=== PATIENT | male | born 1985 | race Caucasian/White ===

== ENCOUNTER 2016-07-29 00:45 | Emergency (ER) | payer MEDICAID, OTHER ==
[~2016-07-29] VITALS: Ht 172.7 cm; Wt 75.0 kg
[~2016-07-29 00:45] MED LIST: IBUP400T20 PO; IBUP600 PO; PENI500T PO; TRAM50 PO
[2016-07-29 00:54] VITALS: BP 138/82; PULSE 78; RESP 18; TEMP 98.5; O2SAT 97
[2016-07-29 01:18] LABS: AUTOMATED NEUTROPHIL # 4.5 TH/MM3 (1.8-7.7); BASOPHIL # 0.1 TH/MM3 (0-0.2); BASOPHIL % 0.8 % (0.0-2.0); EOSINOPHIL # 0.1 TH/MM3 (0-0.4); EOSINOPHIL % 1.2 % (0.0-4.0); HEMATOCRIT 40.1 % (39.0-51.0); HEMO FLAGS DIFF FINAL; LYMPH % 39.6 % (9.0-44.0); LYMPHOCYTE # 3.3 TH/MM3 (1.0-4.8); MEAN CELL VOLUME 85.8 FL (80.0-100.0); MEAN CORPUSCULAR HEMOGLOBIN 30.2 PG (27.0-34.0); MEAN CORPUSCULAR HGB CONC 35.2 % (32.0-36.0); MONO % 4.2 % (0.0-8.0); NEUT % 54.2 % (16.0-70.0); PLATELET COUNT 209 TH/MM3 (150-450); RED BLOOD COUNT 4.67 MIL/MM3 (4.50-5.90); RED CELL DISTRIBUTION WIDTH 12.9 % (11.6-17.2); WHITE BLOOD COUNT 8.4 TH/MM3 (4.0-11.0)
[2016-07-29 01:25] LABS: AMPHETAMINE, URINE NEG (NEG); BARBITURATES, URINE NEG (NEG); COCAINE, URINE NEG (NEG)
[2016-07-29 01:39] LABS: ANION GAP 11 MEQ/L (5-15); AST (GOT) 35 U/L (15-37); BICARBONATE 23.1 MEQ/L (21.0-32.0); CHLORIDE 110 MEQ/L (98-107); GLOMERULAR FILTRATION RATE 88 ML/MIN (>89); POTASSIUM 3.4 MEQ/L (3.5-5.1); SODIUM (NA) 144 MEQ/L (136-145)
[2016-07-29 01:45] LABS: ALKALINE PHOSPHATASE 92 U/L (45-117); ALT (GPT) 35 U/L (12-78); BLOOD UREA NITROGEN 10 MG/DL (7-18); TOTAL BILIRUBIN ADULT 0.2 MG/DL (0.2-1.0)
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
[2016-07-29] MEDS ORDERED: POTASSIUM CHLORIDE 20 MEQ CONTROLLED RELEASE TAB PO ONE (03:30)
[2016-07-29 04:30] VITALS: BP 126/79; PULSE 75; RESP 14; O2SAT 97
[2016-07-29 07:48] VITALS: BP 130/77; PULSE 72; RESP 15; O2SAT 98
[2016-07-29 10:05] VITALS: BP 128/72
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
== END 2016-07-29 10:15 | disposition home or self-care (01) ==
LOC: NEPB 00:45
DX: F43.20 Adjustment disorder, unspecified (principal); F10.10 Alcohol abuse, uncomplicated; Z87.891 Personal history of nicotine dependence; R01.1 Cardiac murmur, unspecified
CPT/HCPCS: 80053; 80307; 80320; 85025; 99283

== ENCOUNTER 2016-12-18 01:10 | Emergency (ER) | payer MEDICAID, OTHER ==
[~2016-12-18] VITALS: Ht 185.4 cm; Wt 62.0 kg
[2016-12-18 01:17] VITALS: BP 117/75; PULSE 54; RESP 16; TEMP 97.8; O2SAT 100
[2016-12-18] MEDS ORDERED: IBUP800T23 PO (01:33)
[2016-12-18] MEDS ORDERED: AMOX875T PO (01:33)
--- NOTE | 2016-12-18 01:33 | PD ---
HPI Chief Complaint: Oral / Dental Pain or Problem Time Seen by Provider: 01:22 Travel History International Travel<30 days: No Contact w/Intl Traveler<30days: No Traveled to known affect area: No History of Present Illness HPI The patient is a 31-year-old male that has a long-standing history of dental problems and multiple broken down teeth who complained of left-sided dental pain for 24 hours. He came in because he knows he needs an antibiotic. He does not currently have a dental appointment. He denies any fever. PFSH Past Medical History Cardiovascular Problems: Yes (murmur) Cerebrovascular Accident: No Diabetes: No Diminished Hearing: No Immunizations Current: Yes Myocardial Infarction: No Seizures: Yes ( A CHILD) Social History Alcohol Use: Yes ([facility]) Tobacco Use: Yes (QUIT AGE 29) Substance Use: No Allergies-Medications (Allergen,Severity, Reaction): Coded Allergies: No Known Allergies (Verified , 07/29/16) Reported Meds & Prescriptions Reported Meds & Active Scripts Active No Active Prescriptions or Reported Medications Review of Systems Except as stated in HPI: all other systems reviewed are Neg Physical Exam Narrative GENERAL: Well-nourished, well-developed patient in slight apparent distress, his vital signs are normal. SKIN: Focused skin assessment warm/dry. HEAD: Normocephalic. I do not see any swelling on the left side of the face externally while I look at the patient. EYES: No scleral icterus. No injection or drainage. NECK: Supple, trachea midline. No JVD or lymphadenopathy. CARDIOVASCULAR: Regular rate and rhythm without murmurs, gallops, or rubs. RESPIRATORY: Breath sounds equal bilaterally. No accessory muscle use. GASTROINTESTINAL: Abdomen soft, non-tender, nondistended. MUSCULOSKELETAL: No cyanosis, or edema. BACK: Nontender without obvious deformity. No CVA tenderness. DENTAL: No loose or chipped teeth. No malocclusion. Multiple broken down teeth are present. No drainable abscesses are noted in the mouth. No tenderness is present below the jaw. Data Data Last Documented VS Vital Signs Date Time Temp Pulse Resp B/P Pulse Ox O2 Delivery O2 Flow Rate FiO2 12/18/16 01:17 97.8 54 16 117/75 100 MDM Medical Decision Making Medical Screen Exam Complete: Yes Emergency Medical Condition: Yes Medical Record Reviewed: Yes Differential Diagnosis Dental infection, drainable dental abscesses, Laurent's anginahighly unlikely Narrative Course The patient has a dental infection without any drainable abscesses. He will need to take amoxicillin 875 twice daily and Motrin 800 mg 3 times daily and follow-up with a dentist. Additional Instructions: As we discussed, follow-up with a dentist. We gave you multiple refills on the antibiotic and the Motrin is taken regularly, 1 tablet 3 times daily. Med/Other Pt SpecificInfo: Prescription(s) given Scripts Ibuprofen 800 Mg [id number] Mg PO TID #44 TAB Ref 0 Prov:Solo Schmidt MD 12/18/16 Amoxicillin 875 Mg [id number] Mg PO BID 10 Days Ref 0 Prov:Solo Schmidt MD 12/18/16 Solo Schmidt MD Dec 18, 2016 01:33
[2016-12-18] MEDS ORDERED: IBUPROFEN 800 MG TAB PO ONE (02:00)
[2016-12-18] MEDS ORDERED: AMOXICILLIN 875 MG TAB PO ONE (02:00)
== END 2016-12-18 02:04 | disposition home or self-care (01) ==
LOC: PHED 01:10
DX: K04.7 Periapical abscess without sinus (principal); K08.89 Other specified disorders of teeth and supporting structures; R01.1 Cardiac murmur, unspecified; Z79.899 Other long term (current) drug therapy; Z87.891 Personal history of nicotine dependence
CPT/HCPCS: 99283

== ENCOUNTER 2017-05-09 03:38 | Emergency (ER) | payer MEDICAID ==
[~2017-05-09] VITALS: Ht 185.4 cm; Wt 64.1 kg
[~2017-05-09 03:38] MED LIST changes: +AMOX875T PO; -IBUP400T20 PO; -IBUP600 PO; +IBUP800T23 PO; -PENI500T PO; -TRAM50 PO
[2017-05-09 03:47] VITALS: BP 130/61; PULSE 48; RESP 18; TEMP 98.3; O2SAT 100
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
[2017-05-09 05:14] VITALS: PULSE 57; O2SAT 100
[2017-05-09] MEDS ORDERED: IBUP800T23 PO (05:26)
--- NOTE | 2017-05-09 05:29 | RADRPT ---
EXAM DATE/TIME: 05/09/2017 04:52 [place] COMPARISON: No previous studies available for comparison. INDICATIONS : Right hand pain. MEDICAL HISTORY : Right hand fracture SURGICAL HISTORY : None. ENCOUNTER: Initial ACUITY: 1 day PAIN SCORE: 6/10 LOCATION: Right hand. FINDINGS: Three view examination of the right hand demonstrates fracture of the distal fifth metacarpal with di splacement. Soft tissue swelling. Bony mineralization is normal. CONCLUSION: Distal fifth metacarpal fracture. Drew Grubbs MD on May 09, 2017 at 5:26 Board Certified Radiologist. This report was verified electronically.
[2017-05-09] MEDS ORDERED: IBUPROFEN 800 MG TAB PO ONE (05:30)
== END 2017-05-09 05:35 | disposition home or self-care (01) ==
LOC: PHED 03:38
DX: S62.336A Displaced fracture of neck of fifth metacarpal bone, right hand, initial encounter for closed fracture (principal); W23.0XXA Caught, crushed, jammed, or pinched between moving objects, initial encounter
CPT/HCPCS: 29125; 73130

== ENCOUNTER 2017-12-07 01:42 | Emergency (ER) | payer SELFPAY ==
[~2017-12-07] VITALS: Ht 182.9 cm; Wt 65.4 kg
[~2017-12-07 01:42] MED LIST changes: -AMOX875T PO; +IBUP1TAB7 PO; -IBUP800T23 PO
[2017-12-07 01:46] VITALS: BP 126/72; PULSE 48; RESP 14; TEMP 95.9; O2SAT 99
[2017-12-07 02:04] VITALS: PULSE 50; TEMP 97.9
[2017-12-07] MEDS ORDERED: PENI500T PO (02:12)
[2017-12-07] MEDS ORDERED: IBUP-232 PO (02:12)
[2017-12-07] MEDS ORDERED: PERI0.126 SWISH-SPIT (02:12)
--- NOTE | 2017-12-07 02:13 | PD ---
HPI Chief Complaint: Oral / Dental Pain or Problem Time Seen by Provider: 02:02 Travel History International Travel<30 days: No Contact w/Intl Traveler<30days: No Traveled to known affect area: No History of Present Illness HPI The patient is a 32-year-old male who presents to the emergency department for left lower jaw swelling. The patient states he has mild swelling along the left lower jaw. He does have a history of poor dentition and states that he needs all of his teeth pulled out, however, does not currently have a dentist. He notes occasional sensitivity to heat and cold, but denies any current sensitivity to heat or cold. The area is slightly swollen and painful. He denies any associated fever, chills, or sweats. Symptoms are moderate. PFSH Past Medical History Cardiovascular Problems: Yes ([facility]) Cerebrovascular Accident: No Diabetes: No Diminished Hearing: No Musculoskeletal: Yes (RIGHT HAND FX: AGE 22) Immunizations Current: Yes Myocardial Infarction: No Seizures: Yes ( A CHILD) Social History Alcohol Use: Yes ([facility]) Tobacco Use: Yes (QUIT AGE 29) Substance Use: No Allergies-Medications (Allergen,Severity, Reaction): Coded Allergies: No Known Allergies (Verified Adverse Reaction, Unknown, 12/07/17) Reported Meds & Prescriptions Reported Meds & Active Scripts Active No Active Prescriptions or Reported Medications Review of Systems Except as stated in HPI: all other systems reviewed are Neg General / Constitutional: No: Fever HENT: Positive: Dental Difficulties, No: Neck Pain Skin: No Rash Physical Exam Narrative GENERAL: Awake, alert, pleasant 32-year-old male who appears his stated age is in no acute respiratory distress. SKIN: Focused skin assessment warm/dry. HEAD: Atraumatic. Normocephalic. EYES: Pupils equal and round. No scleral icterus. No injection or drainage. ENT: No nasal bleeding or discharge. Poor dentition with multiple cavities teeth along the inferior aspect bilateral. I cannot palpate an abscess. No obvious edema or swelling when the jaw is evaluated. NECK: Trachea midline. No JVD. No cervical lymphadenopathy noted. MUSCULOSKELETAL: No obvious deformities. No clubbing. No cyanosis. No edema. NEUROLOGICAL: Awake and alert. No obvious cranial nerve deficits. Motor grossly within normal limits. Normal speech. PSYCHIATRIC: Appropriate mood and affect; insight and judgment normal. Data Data Last Documented VS Vital Signs Date Time Temp Pulse Resp B/P (MAP) Pulse Ox O2 Delivery O2 Flow Rate FiO2 12/07/17 02:04 97.9 50 12/07/17 01:46 14 126/72 (90) 99 MDM Medical Decision Making Medical Screen Exam Complete: Yes Emergency Medical Condition: Yes Medical Record Reviewed: Yes Differential Diagnosis Differential diagnosis includes dental abscess, ANUG, gingivitis, odontalgia, osteomyelitis. Narrative Course The patient's physical examination reveals significant capitis teeth on the inferior aspect but no palpable abscess. The patient will be placed on Pen-Vee K for 10 days and then Peridex afterwards. Naprosyn as needed for pain. He is advised to follow-up with a dentist or oral surgeon for definitive care. Diagnosis Primary Impression: Odontalgia Patient Instructions: General Instructions Additional Instructions: Medications as directed. Follow-up with a dentist or oral surgeon for definitive care. Return if symptoms worsen or progress. Med/Other Pt SpecificInfo: Prescription(s) given Scripts Chlorhexidine Gluconate (Mouth) Liq (Peridex Liq) 0.12% Soln 15 ML SWISH-SPIT BID, #473 ML 0 Refills Prov: Juan Garcia MD 12/07/17 Penicillin V Potassium (Penicillin V Potassium) 500 Mg Tab 500 MG PO Q6H for Infection for 10 Days, #40 TAB 0 Refills Prov: Juan Garcia MD 12/07/17 Ibuprofen (Ibuprofen) 600 Mg Tab 600 MG PO Q6H Y for Pain/Inflammation, #20 TAB 0 Refills Prov: Juan Garcia MD 12/07/17 Disposition: 01 DISCHARGE HOME Condition: Stable Juan Garcia MD December 07, 2017 02:13
== END 2017-12-07 02:31 | disposition home or self-care (01) ==
LOC: PHED 01:42
DX: K08.89 Other specified disorders of teeth and supporting structures (principal); R22.9 Localized swelling, mass and lump, unspecified
CPT/HCPCS: 99283